=== PATIENT | female | born 1955 | race Caucasian/White ===

== ENCOUNTER → 2024-01-13 09:02 | Outpatient (REF) | payer MEDICARE, BC, SELFPAY | LOC: WDC 09:02 | PROVIDERS: ATTENDING PHYSICIAN Family Medicine | DX: N63.21 Unspecified lump in the left breast, upper outer quadrant (principal) | CPT/HCPCS: 76642; 77062; 77066 ==

== ENCOUNTER → 2024-01-20 08:36 | Outpatient (REF) | payer MEDICARE, BC, SELFPAY ==
--- NOTE | 2024-01-20 14:10 | OID.BR.INTR ---
BANDARD Breast Navigator - Initial
- -
Date of Contact: 01/20/24
Met with patient. Patient given written information on navigator services and support services available at [facility]. Will follow up as needed per protocol.
== END ==
LOC: WDC 08:36
PROVIDERS: ATTENDING PHYSICIAN Family Medicine
DX: N63.23 Unspecified lump in the left breast, lower outer quadrant (principal)
CPT/HCPCS: 88305; 19083; 77065; 88342; 88360; A4648

== ENCOUNTER → 2024-01-23 13:12 | Outpatient (REF) | payer MEDICARE, BC, SELFPAY | LOC: RAD 13:12 | PROVIDERS: ATTENDING PHYSICIAN Family Medicine | DX: Z87.891 Personal history of nicotine dependence (principal) | CPT/HCPCS: 71271 ==

== ENCOUNTER → 2024-02-03 16:29 | Outpatient (REF) | payer MEDICARE, BC, SELFPAY | LOC: MRI 3T 16:29 | PROVIDERS: ATTENDING PHYSICIAN Surgery; FAMILY PHYSICIAN Physician Assistant Medical | DX: C50.912 Malignant neoplasm of unspecified site of left female breast (principal) | CPT/HCPCS: 77049; A9585 ==

== ENCOUNTER → 2024-02-21 11:24 | Outpatient (REF) | payer MEDICARE, BC, SELFPAY | LOC: HWRAD 11:24 | PROVIDERS: ATTENDING PHYSICIAN Surgery; FAMILY PHYSICIAN Physician Assistant Medical | DX: K76.9 Liver disease, unspecified (principal); C50.912 Malignant neoplasm of unspecified site of left female breast | CPT/HCPCS: 76700 ==

== ENCOUNTER → 2024-02-24 11:07 | Outpatient (REF) | payer MEDICARE, BC, SELFPAY | LOC: WDC 11:07 | PROVIDERS: ATTENDING PHYSICIAN Surgery | DX: C50.412 Malignant neoplasm of upper-outer quadrant of left female breast (principal) | CPT/HCPCS: 19285; 38792; 76942; 77065; A4648; A9541 ==

== ENCOUNTER → 2024-02-25 07:42 | Outpatient (REF) | payer MEDICARE, BC, SELFPAY | LOC: WDC 07:42 | PROVIDERS: ATTENDING PHYSICIAN Surgery | DX: C50.912 Malignant neoplasm of unspecified site of left female breast (principal) | CPT/HCPCS: 88305; 88307; 88332; 76098; 88331; 88342 ==

== ENCOUNTER → 2024-03-17 15:23 | Outpatient (REF) | payer MEDICARE, BC, SELFPAY | LOC: CLAB 15:23 | PROVIDERS: ATTENDING PHYSICIAN Surgery | DX: C50.412 Malignant neoplasm of upper-outer quadrant of left female breast (principal) | CPT/HCPCS: 88305; 88307 ==

== ENCOUNTER → 2024-04-10 15:20 | Outpatient (REF) | payer MEDICARE, BC, SELFPAY | LOC: WDC 15:20 | PROVIDERS: ATTENDING PHYSICIAN Surgery | DX: N63.20 Unspecified lump in the left breast, unspecified quadrant (principal) | CPT/HCPCS: 76642 ==

== ENCOUNTER → 2024-06-10 09:51 | Outpatient (REF) | payer MEDICARE, BC, SELFPAY | LOC: RAD 09:51 | PROVIDERS: ATTENDING PHYSICIAN Nurse Practitioner Adult Health; FAMILY PHYSICIAN Physician Assistant Medical | DX: C50.412 Malignant neoplasm of upper-outer quadrant of left female breast (principal); Z79.811 Long term (current) use of aromatase inhibitors | CPT/HCPCS: 77080 ==

== ENCOUNTER → 2025-02-01 10:59 | Outpatient (REF) | payer MEDICARE, BC, SELFPAY | LOC: RCS 10:59 | PROVIDERS: ATTENDING PHYSICIAN Internal Medicine Cardiovascular Disease; FAMILY PHYSICIAN Physician Assistant Medical | DX: R01.1 Cardiac murmur, unspecified (principal) | CPT/HCPCS: 93306; 93356 ==

== ENCOUNTER 2025-05-06 06:20 | Day surgery (SDC) | payer MEDICARE, BC, SELFPAY | END 2025-05-06 11:56 | disposition home or self-care (01) | LOC: GI 06:20 | PROVIDERS: ATTENDING PHYSICIAN Internal Medicine | DX: Z12.11 Encounter for screening for malignant neoplasm of colon (principal); C19 Malignant neoplasm of rectosigmoid junction; D12.3 Benign neoplasm of transverse colon | CPT/HCPCS: 45385; 45380; 88305; 88342 ==

== ENCOUNTER 2025-05-12 06:11 | Day surgery (SDC) | payer MEDICARE, BC, SELFPAY | END 2025-05-12 11:37 | disposition home or self-care (01) | LOC: GI 06:11 | PROVIDERS: ATTENDING PHYSICIAN Surgery | DX: C21.8 Malignant neoplasm of overlapping sites of rectum, anus and anal canal (principal); C18.7 Malignant neoplasm of sigmoid colon; K56.690 Other partial intestinal obstruction; Z01.818 Encounter for other preprocedural examination | CPT/HCPCS: 45335 ==

== ENCOUNTER → 2025-05-19 11:37 | Outpatient (REF) | payer MEDICARE, BC, SELFPAY | LOC: RAD 11:37 | PROVIDERS: ATTENDING PHYSICIAN Surgery; FAMILY PHYSICIAN Physician Assistant Medical | DX: C19 Malignant neoplasm of rectosigmoid junction (principal) | CPT/HCPCS: 71260; 74177; Q9967 ==

== ENCOUNTER → 2025-05-26 07:41 | Outpatient (REF) | payer MEDICARE, BC, SELFPAY | LOC: HWRCS 07:41 | PROVIDERS: ATTENDING PHYSICIAN Internal Medicine Cardiovascular Disease; FAMILY PHYSICIAN Physician Assistant Medical | DX: Z01.810 Encounter for preprocedural cardiovascular examination (principal) | CPT/HCPCS: 78452; 93017; A9500; J2785 ==

== ENCOUNTER 2025-05-27 05:53 | Inpatient (IN) | payer MEDICARE, BC, SELFPAY ==
[2025-05-24 08:55] LABS: Hematocrit 42.1 % (37.0-47.0); Hemoglobin 14.4 g/dL (12.0-16.0); Mean Corp Hgb Conc. 34.2 g/dL (33.0-37.0); Mean Corpuscular Volume 100.0 fL (81.0-99.0); Platelet Count 365 10^3/uL (130-400); Red Cell Dist. Width 13.1 % (11.5-14.5)
[2025-05-24 08:57] LABS: INR 0.91; PT 12.5 Sec (11.4-14.6)
[2025-05-24 08:58] LABS: APTT 28.2 Sec (23.4-35.0)
[2025-05-24 09:36] LABS: Glycohemoglobin (HgbA1c) 4.8 % (4.0-5.6)
[2025-05-24 09:39] LABS: ALT (SGPT) 16 U/L (0-35); AST (SGOT) 20 U/L (14-36); Albumin 4.3 g/dl (3.5-5.0); Alkaline Phosphatase 74 U/L (38-126); Blood Urea Nitrogen 11 mg/dl (7-17); Calcium 9.7 mg/dl (8.4-10.2); Carbon Dioxide 30 mmol/L (22-30); Chloride 103 mmol/L (98-107); Glucose 88 mg/dl (70-99); Potassium 4.2 mmol/L (3.5-5.1); Sodium 141 mmol/L (135-145); Total Protein 7.4 g/dl (6.3-8.2); eGFR > 60.00
[2025-05-24 13:46] VITALS: BMI 25.6
--- NOTE | 2025-05-24 14:17 | PTCARENOTE ---
Abnormal EKG reviewed by Dr. Gomez, no further action required.
[2025-05-27] VITALS (13 sets, daily range): BP systolic 0–142; BP diastolic 68–94; BMI 25.6
[2025-05-27] MEDS: CELEBREX 200 MG PO (06:30)
[2025-05-27] MEDS: TYLENOL 1000 MG PO (06:30)
[2025-05-27] MEDS: NEURONTIN 600 MG PO (06:30)
[2025-05-27] MEDS: RELISTOR 12 MG SC (06:33)
[2025-05-27] MEDS: NORMOSOL-R/PLASMALYTE-A 1000 IV ×3 (06:49→23:05)
--- NOTE | 2025-05-27 10:53 | W.OR.COLCA ---
Addendum entered and electronically signed by Nate Merino MD 05/27/25 15:11:
Correction: replace takedown of splenic flexure with flexible sigmoidoscopy
Original Note:
Colon Cancer Post Op Note
Immediate Post Op
Primary Surgeon: Gonzalo Merino MD
Assisting Surgeon: MANNY Zaman
Pre-op Diagnosis: sigmoid colon cancer
Post-op Diagnosis: same
Procedure Performed: 1) robotic sigmoidectomy 2) takedown splenic flexure
Anesthesia Type: general plus local
Specimen / Cultures: 1) sigmoid with tattoo marking distal 2) distal anastomotic donut
Estimated Blood Loss: 75 cc
Complications: no immediate
Operative Findings: 1) sigmoid tumor with associated tattoo 2) no obvious peritoneal or liver metastases
Thomas, ureteral stents, and ureteral ICG by Dr. Zavala. R stent removed at end of case.
Will send to med surg.
Colon Resection
Colon Resection
Operation performed with curative intent: Yes
Tumor Location: Sigmoid Colon
Sigmoid Resection: Inferior Mesenteric
[2025-05-27 11:46] LABS: Hematocrit 44.0 % (37.0-47.0); Hemoglobin 14.7 g/dL (12.0-16.0); Mean Corp Hgb Conc. 33.4 g/dL (33.0-37.0); Mean Corpuscular Volume 99.5 fL (81.0-99.0); Nucleated Red Blood Cells % 0 %; Platelet Count 288 10^3/uL (130-400); Red Cell Dist. Width 12.9 % (11.5-14.5)
[2025-05-27 11:59] LABS: Blood Urea Nitrogen 7 mg/dl (7-17); Calcium 8.5 mg/dl (8.4-10.2); Carbon Dioxide 20 mmol/L (22-30); Chloride 107 mmol/L (98-107); Estimated Creatinine Clearance 68 ml/min; Glucose 188 mg/dl (70-99); Magnesium 2.3 mg/dl (1.6-2.3); Potassium 4.2 mmol/L (3.5-5.1); Sodium 135 mmol/L (135-145); eGFR > 60.00
[2025-05-27] MEDS: TORADOL 10 MG IV ×3 (13:39→23:05)
[2025-05-27] MEDS: TYLENOL 650 MG PO ×4 (13:39→23:05)
--- NOTE | 2025-05-27 13:54 | PTCARENOTE ---
Pt arrived to 2S in bed, full assessment completed. Abdominal incisions and drain site C/D/I, drain with sanguinous output noted. Thomas catheter clean and intact draining bloody urine, stents maintained. IVF initiated. Pt c/o burning to both eyes,
eyes mildly blood shot to assessment, irrigated with NSS, pt expressed relief after irrigation, Mati Jurado aware. Pt instructed to ring for assistance prior to getting OOB. Bed locked and in the lowest position, safety maintained. Oriented to room
and call morley.
[2025-05-28 03:20] VITALS: BP 139/75
[2025-05-28] MEDS: TORADOL 10 MG IV ×4 (05:30→23:48)
[2025-05-28] MEDS: TYLENOL 650 MG PO ×5 (05:31→22:10)
[2025-05-28 06:00] VITALS: BMI 25.7
[2025-05-28 08:02] VITALS: BP 136/65
--- NOTE | 2025-05-28 08:28 | W.PN.CRS1 ---
Today's Communication / Plan
-
OOB.
Fulls.
D/c simmons.
Lovenox.
Assessment/Plan
-
POD 1.
1. vitals ok. Labs pending.
2. stent removed. D/c simmons.
3. OOB.
4. fulls.
5. Lovenox.
Subjective Data
Procedure
robot sigmiodectomy on 05/27/25
Subjective Data
Date of Service: May 28, 2025
Having flatus.
Hungry.
Minimal pain.
Objective Data
-
Vital Signs
Temp Pulse Resp BP Pulse Ox
98.4 F 88 16 136/65 98
05/28/25 08:02 05/28/25 08:02 05/28/25 08:02 05/28/25 08:02 05/28/25 08:02
Intake & Output
05/27/25 05/28/25 05/29/25
06:59 06:59 06:59
Intake Total 800 / 800 1200 / 1200
Output Total 1795 / 1795 685 / 685
Balance -995 / -995 515 / 515
Intake:
Oral fluids 480 / 480 240 / 240
IV fluids (Total) 320 / 320
IV piggybacks 960 / 960
Output:
Drain Output (Total) 35 / 35
Right Abdomen Alexei-Pop 35 / 35
Urine, Simmons 1700 / 1700 650 / 650
Physical Exam
-
General: No Acute Distress
Chest: Clear
Cardiovascular: Regular Rate & Rhythm
Abdomen: Distended (mild) and Tender (mild)
Extremities: No Calf Tenderness
Incision: Clear, Dry, Intact and No Skin Erythema
[2025-05-28] MEDS: PROTONIX 40 MG PO (08:58)
[2025-05-28] MEDS: CYMBALTA DELAYED RELEASE 60 MG PO (08:58)
[2025-05-28] MEDS: LIPITOR 10 MG PO (08:58)
[2025-05-28] MEDS: NORVASC 5 MG PO (08:58)
[2025-05-28] MEDS: FEMARA 2.5 MG PO (08:58)
[2025-05-28] MEDS: RELISTOR 12 MG SC (08:59)
[2025-05-28 09:23] LABS: Hematocrit 35.3 % (37.0-47.0); Hemoglobin 12.0 g/dL (12.0-16.0); Mean Corp Hgb Conc. 34.0 g/dL (33.0-37.0); Mean Corpuscular Volume 102.0 fL (81.0-99.0); Nucleated Red Blood Cells % 0 %; Platelet Count 262 10^3/uL (130-400); Red Cell Dist. Width 12.9 % (11.5-14.5)
[2025-05-28 09:50] LABS: Blood Urea Nitrogen 5 mg/dl (7-17); Calcium 8.6 mg/dl (8.4-10.2); Carbon Dioxide 26 mmol/L (22-30); Chloride 104 mmol/L (98-107); Estimated Creatinine Clearance 80 ml/min; Glucose 107 mg/dl (70-99); Magnesium 2.3 mg/dl (1.6-2.3); Sodium 133 mmol/L (135-145); eGFR > 60.00
[2025-05-28 09:56] LABS: Potassium 4.4 mmol/L (3.5-5.1)
--- NOTE | 2025-05-28 09:59 | CM ---
Reviewed the chart notes and spoke with the patient and her spouse at the bedside. 30 day free Eliquis coupon provided to the patient. The patient resides with her spouse in a three story home with no steps to enter. Patient reports no DME/VN/SNF
in the past. The patient confirmed her pharmacy of choice is [facility] [address] [place]. CM continues to be available to patient/family and is monitoring medical plan for needs at discharge.
Plan: Discharge to home when medically stable. No needs anticipated at this time.
[2025-05-28] MEDS: NORMOSOL-R/PLASMALYTE-A 1000 IV (11:17)
[2025-05-28 11:28] VITALS: BP 141/75
[2025-05-28 15:20] VITALS: BP 136/76
[2025-05-28] MEDS: LOVENOX 40 MG SC (17:01)
[2025-05-28 23:50] VITALS: BP 149/91
[2025-05-28] MEDS: TYLENOL PO (23:50)
[2025-05-29] MEDS: TYLENOL PO (04:50)
[2025-05-29 06:00] VITALS: BMI 25.2
[2025-05-29] MEDS: TORADOL 10 MG IV ×2 (06:08→12:32)
[2025-05-29 07:05] VITALS: BP 159/99
[2025-05-29] MEDS: FEMARA 2.5 MG PO (08:10)
[2025-05-29] MEDS: PROTONIX 40 MG PO (08:10)
[2025-05-29] MEDS: LIPITOR 10 MG PO (08:10)
[2025-05-29] MEDS: TYLENOL 650 MG PO ×2 (08:10→12:32)
[2025-05-29] MEDS: NORVASC 5 MG PO (08:11)
[2025-05-29] MEDS: CYMBALTA DELAYED RELEASE 60 MG PO (08:11)
[2025-05-29] MEDS: RELISTOR 12 MG SC (08:12)
[2025-05-29 09:55] LABS: Hematocrit 39.2 % (37.0-47.0); Hemoglobin 13.0 g/dL (12.0-16.0); Mean Corp Hgb Conc. 33.2 g/dL (33.0-37.0); Mean Corpuscular Volume 104.5 fL (81.0-99.0); Platelet Count 259 10^3/uL (130-400); Red Cell Dist. Width 12.7 % (11.5-14.5)
[2025-05-29 10:10] LABS: Blood Urea Nitrogen 5 mg/dl (7-17); Calcium 8.9 mg/dl (8.4-10.2); Carbon Dioxide 25 mmol/L (22-30); Chloride 105 mmol/L (98-107); Estimated Creatinine Clearance 80 ml/min; Glucose 95 mg/dl (70-99); Potassium 4.1 mmol/L (3.5-5.1); Sodium 135 mmol/L (135-145); eGFR > 60.00
--- NOTE | 2025-05-29 12:37 | W.PN.CRS1 ---
Today's Communication / Plan
-
discharge planning
Assessment/Plan
-
69 yo female presenting for surgical management of sigmoid colon ca now POD #1 robotic sigmoidectomy
AFVSS
Good bowel recovery, tolerating dietary advancements
Voiding without difficulty
Minimal pain, not requiring narcotics
Plan:
D/C SURAJ drain
Low residue diet
Analgesics with tylenol/nsaids
Lovenox for vte ppx while inpatient, transition to low dose eliquis x1 month on d/c
Subjective Data
Procedure
robot sigmiodectomy on 05/27/25
Subjective Data
Date of Service: May 29, 2025
Pt seen and examined at bedside with Dr. Merino. Denies n/v. Tolerating fulls. OOB/ambulating. Passing flatus and stools. Minimal if any discomfort.
Objective Data
-
Vital Signs
Temp Pulse Resp BP Pulse Ox
98.3 F 66 18 159/99 99
05/29/25 07:05 05/29/25 08:11 05/29/25 07:05 05/29/25 08:11 05/29/25 07:05
Intake & Output
05/28/25 05/29/25 05/30/25
06:59 06:59 06:59
Intake Total 800 / 800 3720 / 3720
Output Total 1795 / 1795 2585 / 2585
Balance -995 / -995 1135 / 1135
Intake:
Oral fluids 480 / 480 2360 / 2360
IV fluids (Total) 320 / 320 400 / 400
IV piggybacks 960 / 960
Output:
Drain Output (Total) 185 / 185
Right Abdomen Alexei-Pop 185 / 185
Urine, Thomas 1700 / 1700 650 / 650
Urine, Voided 1750 / 1750
Other:
Number of approximated MODERATE 3
amounts of urine
Lab Results
05/29/25 09:32
05/29/25 09:32
Physical Exam
-
General: No Acute Distress
Chest: Clear
Cardiovascular: Regular Rate & Rhythm
Abdomen: Soft, Non Distended, Non Tender and Other (SURAJ with SSF, removed)
Extremities: No Calf Tenderness
Incision: Clear, Dry, Intact (glue to incisions) and No Skin Erythema
--- NOTE | 2025-05-29 12:42 | W.DS.TRANS ---
Addendum entered and electronically signed by FLOYD Vallecillo 05/29/25 15:52:
dictated #[id number]
Original Note:
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
-
Discharge Instructions:
Sleep Apnea Risk Low
Discharge Diagnosis/Procedures Robotic assisted sigmoidectomy
Diet Low Fiber
Activity No strenuous activity
Additional Activity Do not lift over 10lbs (gallon of milk)
Bathing Restrictions OK to Shower
Wound Care Allow the glue to flake off your wounds on its
own, avoid scrubbing or picking off
Instructions: Low-fiber diet
Stand-Alone Forms:
Changes to Home Medications: No
Discharge Medications:
DC Medications w/original date entered in [employer]
amlodipine 5 mg tablet 5 mg PO DAILY 05/26/25
atorvastatin 10 mg tablet 10 mg PO DAILY 05/26/25
duloxetine 60 mg capsule,delayed release 60 mg PO DAILY 05/26/25
letrozole 2.5 mg tablet 2.5 mg PO DAILY 05/26/25
omeprazole 20 mg tablet,delayed release 20 mg PO DAILY 05/26/25
apixaban 2.5 mg tablet (Eliquis) 2.5 mg PO BID 30 days #60 tabs 05/28/25
Home Medication Changes
Pending Results: No
--- NOTE | 2025-05-29 13:12 | CM ---
CM reviewed chart and noted dc order
Bedside meeting with pt and spouse
Spouse confirmed he has Eliquis 30 day card
IMM verbally reviewed-copy provided
No dc needs noted
Discharge Disposition- home, no needs
[2025-05-29 13:18] VITALS: BP 132/84
[2025-05-29] MEDS: FLUZONE HIGH-DOSE 2025-26 0.5 ML IM (13:20)
== END 2025-05-29 13:55 | disposition home or self-care (01) | DRG 331 ==
LOC: 2 SOUTH 05:53
PROVIDERS: Registered Nurse; Specialist; ADMITTING PHYSICIAN Surgery; FAMILY PHYSICIAN Physician Assistant Medical; OTHER PHYSICIAN Internal Medicine Cardiovascular Disease
PROC: 8E0W4CZ Robotic Assisted Procedure of Trunk Region, Percutaneous Endoscopic Approach (ICD-10-PCS; 2025-05-27)
PROC: 0DTN4ZZ Resection of Sigmoid Colon, Percutaneous Endoscopic Approach (ICD-10-PCS; 2025-05-27)
DX: C18.7 Malignant neoplasm of sigmoid colon (principal); N81.10 Cystocele, unspecified; Z79.899 Other long term (current) drug therapy
CPT/HCPCS: 78452; 80048; 80053; 83036; 83735; 85025; 85027; 85610; 85730; 86850; 86900; 86901; 88304; 88309; 90662; 93005; 93017; A9500; G0008; J1335; J2785

== ENCOUNTER 2025-06-23 06:25 | Day surgery (SDC) | payer MEDICARE, BC, SELFPAY ==
[2025-06-23] VITALS (7 sets, daily range): BP systolic 100–141; BP diastolic 55–93; BMI 23.9
[2025-06-23] MEDS: NORMOSOL-R/PLASMALYTE-A 1000 IV (11:13)
== END 2025-06-23 14:45 | disposition home or self-care (01) ==
LOC: SDS 06:25
PROVIDERS: ATTENDING PHYSICIAN Surgery
DX: C18.7 Malignant neoplasm of sigmoid colon (principal)
CPT/HCPCS: 36561; 71045; 76000; 93005; C1788

== ENCOUNTER → 2025-07-12 09:14 | Outpatient (REF) | payer MEDICARE, BC, SELFPAY ==
[2025-07-12 10:13] LABS: Hematocrit 37.9 % (37.0-47.0); Hemoglobin 12.7 g/dL (12.0-16.0); Mean Corp Hgb Conc. 33.5 g/dL (33.0-37.0); Mean Corpuscular Volume 98.7 fL (81.0-99.0); Nucleated Red Blood Cells % 0 %; Platelet Count 237 10^3/uL (130-400); Red Cell Dist. Width 13.0 % (11.5-14.5)
[2025-07-12 10:34] LABS: ALT (SGPT) 23 U/L (0-35); AST (SGOT) 22 U/L (14-36); Albumin 4.3 g/dl (3.5-5.0); Alkaline Phosphatase 67 U/L (38-126); Blood Urea Nitrogen 8 mg/dl (7-17); Calcium 9.3 mg/dl (8.4-10.2); Carbon Dioxide 28 mmol/L (22-30); Chloride 104 mmol/L (98-107); Glucose 95 mg/dl (70-99); Potassium 4.1 mmol/L (3.5-5.1); Sodium 138 mmol/L (135-145); Total Protein 7.2 g/dl (6.3-8.2); eGFR > 60.00
== END ==
LOC: REG 09:14
PROVIDERS: ATTENDING PHYSICIAN Internal Medicine Hematology & Oncology; FAMILY PHYSICIAN Physician Assistant Medical
DX: C50.412 Malignant neoplasm of upper-outer quadrant of left female breast (principal); Z79.811 Long term (current) use of aromatase inhibitors; C18.7 Malignant neoplasm of sigmoid colon
CPT/HCPCS: 36415; 80053; 85025

== ENCOUNTER → 2025-07-26 08:12 | Outpatient (REF) | payer MEDICARE, BC, SELFPAY ==
[2025-07-26 09:19] LABS: Hematocrit 36.8 % (37.0-47.0); Hemoglobin 12.5 g/dL (12.0-16.0); Mean Corp Hgb Conc. 34.0 g/dL (33.0-37.0); Mean Corpuscular Volume 97.9 fL (81.0-99.0); Nucleated Red Blood Cells % 0 %; Platelet Count 224 10^3/uL (130-400); Red Cell Dist. Width 14.4 % (11.5-14.5)
[2025-07-26 09:54] LABS: ALT (SGPT) 25 U/L (0-35); AST (SGOT) 28 U/L (14-36); Albumin 4.5 g/dl (3.5-5.0); Alkaline Phosphatase 68 U/L (38-126); Blood Urea Nitrogen 6 mg/dl (7-17); Calcium 9.3 mg/dl (8.4-10.2); Carbon Dioxide 27 mmol/L (22-30); Chloride 103 mmol/L (98-107); Glucose 98 mg/dl (70-99); Potassium 3.9 mmol/L (3.5-5.1); Sodium 137 mmol/L (135-145); Total Protein 7.3 g/dl (6.3-8.2); eGFR > 60.00
== END ==
LOC: REG 08:12
PROVIDERS: ATTENDING PHYSICIAN Internal Medicine Hematology & Oncology; FAMILY PHYSICIAN Physician Assistant Medical
DX: C50.412 Malignant neoplasm of upper-outer quadrant of left female breast (principal); Z79.811 Long term (current) use of aromatase inhibitors; C18.7 Malignant neoplasm of sigmoid colon
CPT/HCPCS: 36415; 80053; 85025

== ENCOUNTER → 2025-08-09 08:39 | Outpatient (REF) | payer MEDICARE, BC, SELFPAY ==
[2025-08-09 09:49] LABS: Hematocrit 32.9 % (37.0-47.0); Hemoglobin 11.3 g/dL (12.0-16.0); Mean Corp Hgb Conc. 34.3 g/dL (33.0-37.0); Mean Corpuscular Volume 99.4 fL (81.0-99.0); Platelet Count 93 10^3/uL (130-400); Red Cell Dist. Width 17.6 % (11.5-14.5)
[2025-08-09 10:11] LABS: ALT (SGPT) 39 U/L (0-35); AST (SGOT) 44 U/L (14-36); Albumin 4.1 g/dl (3.5-5.0); Alkaline Phosphatase 135 U/L (38-126); Blood Urea Nitrogen 8 mg/dl (7-17); Calcium 8.9 mg/dl (8.4-10.2); Carbon Dioxide 27 mmol/L (22-30); Chloride 102 mmol/L (98-107); Glucose 97 mg/dl (70-99); Potassium 3.8 mmol/L (3.5-5.1); Sodium 137 mmol/L (135-145); Total Protein 6.7 g/dl (6.3-8.2); eGFR > 60.00
[2025-08-09 10:31] LABS: Absolute Neutrophils -Man Diff 9.1 10^3/uL (1.4-6.5); Platelets Checked Yes
[2025-08-09 10:32] LABS: Anisocytosis 1+; Hypochromasia 1+; Normal RBC Morphology No; Polychromasia 1+; Stomatocytes 1+; Total Cells Counted 100
== END ==
LOC: REG 08:39
PROVIDERS: ATTENDING PHYSICIAN Internal Medicine Hematology & Oncology; FAMILY PHYSICIAN Physician Assistant Medical
DX: C50.412 Malignant neoplasm of upper-outer quadrant of left female breast (principal); Z79.811 Long term (current) use of aromatase inhibitors; C18.7 Malignant neoplasm of sigmoid colon
CPT/HCPCS: 36415; 80053; 85025